=== PATIENT | female | born 1960 | race Caucasian/White ===

== ENCOUNTER → 2020-12-25 09:34 | Outpatient (CLI) | payer OTHER, SELFPAY ==
--- NOTE | 2020-12-25 | DI.US.S_ITS ---
PROCEDURE: US ABDOMEN LIMITED INDICATIONS: RUQ PAIN TECHNIQUE: Real-time focused scanning was performed of the abdomen, with image documentation. COMPARISON: None. FINDINGS: The liver is normal size and mildly diffusely hyperechoic in echotexture. There is focal fatty sparing in the gallbladder fossa. A 2.0 cm cyst is present in the anterior right liver lobe. A smoothly marginated 1.2 cm ovoid area of heterogeneous hypoechogenicity is present centrally in the right liver lobe, potentially hemangioma. No vascular flow internally. No intra or extrahepatic biliary dilatation. The common duct is 2.9 mm. The gallbladder is normal without stones, sludge, wall thickening, or pericholecystic fluid. The visible portion of the pancreas is normal without ductal dilatation or enlargement. IMPRESSION: 1. Mild hepatic steatosis. 2. Liver cyst and probable hemangioma. 3. Normal gallbladder. Dictated by: Vianca German M.D. on 12/25/2020 at 12:21 Approved by: Vianca German M.D. on 12/25/2020 at 12:23
== END ==
PROVIDERS: PCP Internal Medicine; Referring Provider Internal Medicine; Visit Provider Internal Medicine
DX: R10.11 Right upper quadrant pain (principal); K76.89 Other specified diseases of liver; K76.0 Fatty (change of) liver, not elsewhere classified
CPT/HCPCS: 76705

== ENCOUNTER 2022-07-05 10:40 | Emergency (ER) | payer OTHER, SELFPAY ==
[2022-07-05 10:57] VITALS: BP 155/88; PULSE 84; RESP 18; TEMP 36.6; O2SAT 99
--- NOTE | 2022-07-05 11:02 | ED.ABDPAIN ---
HPI - Abdominal Pain General Chief Complaint: Abdominal Pain Stated Complaint: Abd issues, unable to eat Time Seen by Provider: 07/05/22 10:59 History of Present Illness HPI narrative: Patient is a healthy 62-year-old female history of celiac disease presenting today with early satiety. States that over last couple of days every time she eats she start heart beating. She says this is extremely abnormal. She can only take 3 bites and then she feels very full. She says her bowel movements have been regular she is not nauseous she does not vomit. She does not have fever or chills. She says this is extremely abnormal for her. Review of Systems Review of Systems Narrative: GENERAL: Denies chills, fatigue, malaise, fever, sweats, travel HEENT: Denies sinus pain, ear pain, sore throat, difficulty swallowing, neck pain RESPIRATORY: Denies dyspnea, cough, wheezing, hemoptysis, sputum. CARDIOVASCULAR: Denies chest pain, palpitations, orthopnea, edema GASTROINTESTINAL: See HPI : Denies dysuria, frequency, incontinence, hematuria, urinary retention, flank pain. MUSCULOSKELETAL: Denies weakness, joint pain, or bony pain SKIN: No rash, no erythema, no pruritus NEUROLOGIC: Denies weakness, dizziness, headache, numbness, change in speech, confusion PSYCHIATRIC: No concerning psychosocial issues. 12 point review of systems is negative except for those stated above and HPI Patient History Social History Smoking Status: Never smoker Exam Initial Vital Signs Initial Vital Signs: Vital Signs Temperature 98 F 07/05/22 10:57 Pulse Rate 84 07/05/22 10:57 Respiratory Rate 18 07/05/22 10:57 Blood Pressure 155/88 H 07/05/22 10:57 Pulse Oximetry 99 07/05/22 10:57 Oxygen Delivery Method 07/05/22 10:57 GENERAL: [Well-appearing, well-nourished] and in [no acute] distress. HEENT: Head atraumatic,EOMI, pupils reactive, face symmetric, [moist] mucous membranes CARDIOVASCULAR: Regular rate and rhythm without murmurs, rubs or gallops. RESPIRATORY: Breath sounds equal bilaterally, no wheezes rales or rhonchi. ABDOMEN: Soft, nontender. Normoactive bowel sounds all 4 quadrants. No guarding or rebound. EXTREMITIES: Normal range of motion, no clubbing or edema. Neurovascularly intact NEUROLOGICAL: Alert and oriented x4.Normal gait and speech. SKIN: Warm, dry, no laceration, no petechiae, no rashes or lesions. Course Orders Ordered: ED Orders 07/05/22 10:58 Complete Blood Count AUTO DIFF Stat Comprehensive Metabolic Panel Stat Lipase Stat 07/05/22 11:08 CT abdomen pelvis w con Stat Vital Signs Vital signs: Vital Signs - 8 hr 07/05/22 12:39 Pulse Rate 71 Respiratory Rate 16 Blood Pressure 113/68 Pulse Oximetry 97 Oxygen Delivery Method Room Air MDM - Abdominal Pain Lab Data Result diagrams: 07/05/22 10:58 07/05/22 10:58 Labs: Lab Results 07/05/22 07/05/22 Range/Units 10:58 10:58 WBC 5.7 (4.5-11.0) X10^3/uL RBC 4.15 (4.0-5.2) X10^6/uL Hgb 14.0 (12.0-16.0) g/dL Hct 40.1 (36-46) % MCV 96.7 (80-100) fL MCH 33.8 (26-34) PG MCHC 35.0 (30-36) % RDW 12.3 (11.6-14.8) % Plt Count 168 (150-400) X10^3/uL Neut % (Auto) 71.6 (50-75) % Lymph % (Auto) 19.4 L (25-40) % [place] % (Auto) 7.7 (3-14) % Eos % (Auto) 0.8 L (2-4) % Baso % (Auto) 0.5 (0-2) % Neut # (Auto) 4100 (9030-5266) /uL Lymph # (Auto) 1100 (6857-3936) /uL [place] # (Auto) 400 (0-900) /uL Eos # (Auto) 0 (0-450) /uL Baso # (Auto) 0 (0-100) /uL Sodium 139 (137-145) mmol/L Potassium 3.8 (3.4-5.1) mmol/L Chloride 104 (98-107) mmol/L Carbon Dioxide 26 (22-32) mmol/L BUN 14 (7-17) mg/dL Creatinine 0.75 (0.52-1.04) mg/dL Estimated GFR > 60 (>60) mL/min BUN/Creatinine Ratio 18.7 (6-22) Glucose 115 H (80-110) mg/dL Calcium 9.3 (8.4-10.2) mg/dL Total Bilirubin 0.8 (0.2-1.3) mg/dL AST 30 (14-36) IU/L ALT 27 (<35) IU/L Alkaline Phosphatase 67 (38-126) U/L Total Protein 7.9 (6.3-8.2) g/dL Albumin 4.5 (3.5-5.0) g/dL Globulin 3.4 (1.7-4.1) g/dL Albumin/Globulin Ratio 1.3 (1.0-2.8) Lipase 174 (23-300) U/L Point of care testing: Urine Dip Bedside Urine Glucose Negative Bedside Urine Bilirubin - Negative Bedside Urine Ketone - Negative Urine Specific [place] 1.005 Bedside Urine Occult Blood +/- Bedside Urine pH 6 Bedside Urine Protein - Negative Bedside Urine Urobilinogen +/- 1mg Bedside Urine Nitrite - Negative Bedside Urine Leukocytes - Negative Esterase Imaging Data CT scan - abdomen/pelvis: Radiologist's Impression: t: Nacho Harley MR#: [id number] : 11/09/1983 Acct:[id number] Age/Sex: 38 / M Date of Service: 07/05/22 Loc: ED Accession Number: [id number] ?? Procedure: CT kidney ureter bladder (KUB) Ordering Provider: Greta Dugan D.O. PROCEDURE:? CT KIDNEY URETER BLADDER (KUB) ? INDICATIONS:? right flank pain ? TECHNIQUE:? Axial sections were acquired from the lung bases to the pubic symphysis.? Coronal and sagittal reformats were performed.? For radiation dose reduction, the following was used: ?automated exposure control, adjustment of mA and/or kV according to patient size.? ? COMPARISON:? None. ? FINDINGS:? Image quality:? Excellent.? ? Lung bases:? Unremarkable.? ? Heart:? No significant findings. ? URINARY: Right Kidney: ? No stones or hydronephrosis.? Right Ureter:? No hydroureter.? ? Left Kidney: ? No stones or hydronephrosis. Left Ureter:? No hydroureter.? ? Bladder:? Normal wall thickness. No stones. ? ? ? ABDOMEN: Liver:? Unremarkable.? ? Gallbladder:? Unremarkable.? ? Biliary ducts:? Unremarkable.? ? Pancreas:? Unremarkable.? ? Spleen:? There is a splenic cyst seen posteriorly that measures water density and 5 cm.? The spleen itself demonstrates normal size. Adrenal Glands:? Unremarkable.? ? ? Stomach and Bowel:? The appendix is abnormal, measuring up to 1.3 cm.? Within the proximal appendix, high-density material can be seen, which is attributed to appendicoliths.? Moderate surrounding inflammatory change can be seen.? No free air can be seen.? No focal fluid collections are seen to suggest abscess. No dilated loops of small bowel are seen.? No significant colonic abnormality can be seen. Peritoneum:? No abnormal intraperitoneal fluid.? No free air.? ? Ventral Wall: ? No hernia.? Abdominal Nodes:? No enlarged retroperitoneal or mesenteric lymph nodes.? Vessels:? Aorta and inferior vena cava are normal in size.? ? PELVIS: Pelvic Organs:? Unremarkable.? ? Pelvic Nodes: Unremarkable. Miscellaneous: No inguinal hernias are seen. ? ? ? Bones:? At the L5-S1 level, there is moderate to severe disc space narrowing with associated endplate irregularity and sclerosis. Vacuum disc phenomenon is seen at this level.? Mild retrolisthesis is seen at this level.? At least moderate bilateral neural foraminal narrowing can be seen at this level.? Milder degenerative changes are seen elsewhere.? ? IMPRESSION:? ? Acute appendicitis, without findings of perforation or abscess. ? Appendicoliths are seen. ? Negative for kidney stones or obstructive uropathy. ? ? ? Incidental note is made of: Simple appearing splenic cyst Focal L5-S1 degenerative change ? Note: Case discussed by telephone with Dr. Dugan at 10:19 a.m. [place] time on July 05, 2022. ? Dictated by: Ronald Caballero M.D. on 07/05/2022 at 10:16 ? ? Approved by: Ronald Caballero M.D. on 07/05/2022 at 10:20 ? MDM Narrative Medical decision making narrative: Patient is having early satiety for just a couple of days. Abdomen is soft blood work is overall reassuring. CT does not show any cause for her early satiety. At this time no need for admission follow up outpatient Discharge Plan Departure Patient Disposition: Home Clinical Impression: Abdominal pain Instructions: DI for Abdominal Pain-Adult Activity Restrictions/Additional Instructions: *You have been diagnosed with abdominal pain *What to do: At this time no evidence for your symptoms. Blood work and CT scan are overall reassuring. *Continue to take medications as directed *Follow up with your primary care provider in 2-3 days or call [phone] *Return to ER if you should have vomiting abdominal pain weight loss, or any new, worsening or concerning symptoms Referrals: Edith Mooney MD [Primary Care Provider] - Visit Report Forms: Patient Portal/API
--- NOTE | 2022-07-05 11:08 | DI.CT.S_ITS ---
PROCEDURE: CT ABDOMEN PELVIS W CON INDICATIONS: Early satiety TECHNIQUE: After the administration of intravenous contrast, axial sections acquired from the lung bases to the pubic symphysis. Coronal and sagittal reformats were performed. For radiation dose reduction, the following was used: automated exposure control, adjustment of mA and/or kV according to patient size. COMPARISON: None. FINDINGS: Image quality: Excellent. Lung bases: Mild atelectasis is present at the left lung base. No pleural effusion. Heart: No significant findings. ABDOMEN: Liver: Liver is normal in size and overall enhancement. Multiple circumscribed hypodense lesions are present within the liver suggesting simple hepatic cysts which are incompletely characterized. Gallbladder: Unremarkable. Biliary ducts: Unremarkable. Pancreas: Unremarkable. Spleen: Unremarkable. Adrenal Glands: Unremarkable. Kidneys and Ureters: Unremarkable. Low-density cortical cystic lesions are present within the right renal cortex. Stomach and Bowel: Stomach, small bowel loops, and colon are unremarkable. There are scattered sigmoid diverticula. No evidence for diverticulitis. The appendix is thin walled and gas filled. Peritoneum: No abnormal intraperitoneal fluid. No free air. Ventral Wall: No hernias. Abdominal Nodes: No retroperitoneal or mesenteric adenopathy by size criteria. Vessels: Aorta and inferior vena cava are normal in size. PELVIS: Pelvic Organs: Unremarkable. Multiple small fibroids are noted within the uterus. Bladder: Unremarkable. Pelvic Nodes: No enlarged lymph nodes. Miscellaneous: No hernias are seen. Bones: Unremarkable. IMPRESSION: 1. No acute intra-abdominal findings. Normal appendix. 2. No findings to explain early satiety. Dictated by: Rashmi Jones M.D. on 07/05/2022 at 12:05 Approved by: Rashmi Jones M.D. on 07/05/2022 at 12:08
[2022-07-05 11:10] LABS: Add Manual Diff / Slide Review NO; Basophils Absolute Auto 0 /uL (0-100); Basophils Percent Auto 0.5 % (0-2); Eosinophils Absolute Auto 0 /uL (0-450); Eosinophils Percent Auto 0.8 % (2-4); Hematocrit 40.1 % (36-46); Lymphocytes Absolute Auto 1100 /uL (1100-4500); Lymphocytes Percent Auto 19.4 % (25-40); Mean Corpuscular Hemoglobin 33.8 PG (26-34); Mean Corpuscular Volume 96.7 fL (80-100); Monocytes Absolute Auto 400 /uL (0-900); Monocytes Percent Auto 7.7 % (3-14); Neutrophils Absolute Auto 4100 /uL (1500-7000); Neutrophils Percent Auto 71.6 % (50-75); Platelet Count 168 X10^3/uL (150-400); Red Blood Cell Count 4.15 X10^6/uL (4.0-5.2); Red Cell Distribution Width 12.3 % (11.6-14.8); White Blood Cell Count 5.7 X10^3/uL (4.5-11.0)
[2022-07-05 11:23] LABS: Alanine Aminotransferase 27 IU/L (<35); Albumin 4.5 g/dL (3.5-5.0); Albumin Globulin Ratio 1.3 (1.0-2.8); Alkaline Phosphatase 67 U/L (38-126); Aspartate Aminotransferase 30 IU/L (14-36); BUN Creatinine Ratio 18.7 (6-22); Bilirubin Total 0.8 mg/dL (0.2-1.3); Blood Urea Nitrogen 14 mg/dL (7-17); Calcium 9.3 mg/dL (8.4-10.2); Carbon Dioxide 26 mmol/L (22-32); Chloride 104 mmol/L (98-107); Estimated Glomerular Filt Rate > 60 mL/min (>60); Globulin 3.4 g/dL (1.7-4.1); Glucose 115 mg/dL (80-110); HEMOLYSIS < 15 (0-50); Lipase 174 U/L (23-300); Potassium 3.8 mmol/L (3.4-5.1); Sodium 139 mmol/L (137-145); Total Protein 7.9 g/dL (6.3-8.2)
[2022-07-05 12:39] VITALS: BP 113/68; PULSE 71; RESP 16; O2SAT 97
== END 2022-07-05 12:44 | disposition home or self-care (01) ==
PROVIDERS: Emergency Provider Emergency Medicine; PCP Internal Medicine
DX: R10.9 Unspecified abdominal pain (principal); R68.81 Early satiety
CPT/HCPCS: 36415; 74177; 80053; 81003; 83690; 85025; 99283; 99284

== ENCOUNTER → 2024-03-04 10:41 | Outpatient (CLI) | payer MEDICARE, SELFPAY ==
--- NOTE | 2024-03-04 10:45 | DI.US.S_ITS ---
PROCEDURE: US ABDOMEN LIMITED INDICATIONS: FATTY LIVER TECHNIQUE: Real-time focused scanning was performed of the abdomen, with image documentation. COMPARISON: [facility], CT, CT ABDOMEN PELVIS W CON, 07/05/2022, 11:41. [facility], US, US ABDOMEN LIMITED, 12/25/2020, 9:47. FINDINGS: The liver demonstrates mildly enlarged size. The liver demonstrates generalized mildly increased echogenicity. This decreases ultrasound sensitivity for detection of hepatic masses. Within the right lobe of the liver, there is a 3.3 x 2.5 x 2.6 cm simple cyst, which previously measured 2 x 2 x 1.7 cm. The previously seen hypoechoic nodule within the right lobe is not seen on the current study. No findings of gallstones or sludge are seen. The gallbladder wall is not thickened, measuring 3 mm or less. The 3.5 mm gallbladder wall polyp can be seen. No specific pericholecystic fluid is seen. The sonographic [place] sign is negative. There is no biliary dilatation, the common bile duct measures 5.5 mm. No significant pancreatic abnormality is seen on these images. The visualized right kidney is unremarkable, without hydronephrosis. IMPRESSION: Mildly enlarged, mildly fatty liver. Within the right lobe of the liver, there is a 3.3 cm cyst seen, which is mildly increased in size compared to the prior. Dictated by: Ronald Caballero M.D. on 03/04/2024 at 12:21 Approved by: Ronald Caballero M.D. on 03/04/2024 at 12:26
== END ==
PROVIDERS: PCP Internal Medicine; Referring Provider Internal Medicine; Visit Provider Internal Medicine
DX: K76.0 Fatty (change of) liver, not elsewhere classified (principal); K76.89 Other specified diseases of liver; K82.4 Cholesterolosis of gallbladder; R10.11 Right upper quadrant pain
CPT/HCPCS: 76705